=== PATIENT | female | born 1965 | race Caucasian/White ===

== ENCOUNTER 2018-11-11 07:38 | Inpatient (IN) ==
--- NOTE | 2018-11-07 10:16 | EKG Report ---
Test Performed on : 11/07/2018 09:58:55 AM Test Reason : PAT Blood Pressure : / mmHG Vent. Rate : 062 BPM Atrial Rate : 062 BPM P-R Int : 174 ms QRS Dur : 098 ms QT Int : 422 ms P-R-T Axes : 043 047 035 degrees QTc Int : 428 ms Normal sinus rhythm. Normal ECG When compared with ECG of 21-MAY-2015 00:56, No significant change was found Confirmed by Usha BRANDT, Enrique Santiago ([id number]) on 11/08/2018 6:03:40 AM
[2018-11-07 10:29] LABS: URINE SOURCE VOIDED
[2018-11-07 10:33] LABS: BASO# 0.03 X1000 (0.0-0.2); BASO% 0.4 % (0.0-0.8); EOS# 0.24 X1000 (0.0-0.7); EOS% 3.3 % (0.0-10.0); HEMATOCRIT 44.1 % (37.0-47.0); HEMOGLOBIN 14.4 g/dL (12.0-16.0); LYMPH# 2.34 X1000 (1.2-3.4); MCH 30.2 PG (27-31); MCHC 32.7 g/dL (33-37); MCV 92.5 FL (81-99); MONO# 0.65 X1000 (0.11-0.59); MONO% 8.9 % (1.7-9.3); NEUT# 4.05 X1000 (1.4-6.5); NEUT% 55.4 % (42.2-75.2); PLT 166 X1000 (130-400); RBC 4.77 XMIL (4.2-5.4); RDW 14.9 % (11.5-14.5); WBC 7.31 X1000 (4.8-10.8)
[2018-11-07 10:35] LABS: BILIRUBIN URINE NEGATIVE (NEGATIVE); BLOOD URINE NEGATIVE (NEGATIVE); COLOR YELLOW; GLUCOSE URINE NEGATIVE (NEGATIVE); KETONE URINE NEGATIVE (NEGATIVE); LEUKOCYTES URINE NEGATIVE (NEGATIVE); NITRITE URINE NEGATIVE (NEGATIVE); PH URINE 6.5; PROTEIN URINE 30 mg/dL (NEGATIVE); SP GRAVITY URINE 1.019; TURBIDITY URINE CLEAR (CLEAR); UROBILINOGEN URINE 2 mg/dL (NORMAL)
[2018-11-07 10:36] LABS: UR EPITHELIAL CELLS <10 /HPF (<10); URINE BACTERIA NEGATIVE /HPF; URINE RBC <10 /HPF (<10); URINE WBC <10 /HPF (<10)
--- NOTE | 2018-11-07 10:40 | Diag Imaging Result Doc PS360 ---
EXAM: CHEST-2 VIEWS INDICATION: PAT TECHNIQUE: 2 views COMPARISON: 03/18/2015 FINDINGS: The lungs are grossly clear. There is no discrete pleural fluid collection or pneumothorax. The cardiomediastinal silhouette and central vasculature are grossly unremarkable. IMPRESSION: No evidence of acute pathology by plain radiograph. Electronically signed by rTell Riddle 11/07/2018 10:37 AM
[2018-11-07 10:47] LABS: AGAP 7; BUN 20 mg/dL (8-22); CALCIUM 10.1 mg/dL (8.8-10.2); CHLORIDE 105 mmol/L (98-107); COSMO 286; CREATININE 0.7 mg/dL (0.5-0.9); ESTIMATED GFR > 60; GLUCOSE 139 mg/dL (70-104); POTASSIUM 4.1 mmol/L (3.5-5.1); SODIUM 141 mmol/L (136-145); TCO2 29 mmol/L (25-35)
[~2018-11-11 07:38] MED LIST: VERSED ONE
[2018-11-11] MEDS ORDERED: SODIUM CHLORIDE 0.9% 10 ML ONE (07:45)
[2018-11-11] MEDS ORDERED: FENTANYL ONE (07:45)
[2018-11-11] MEDS ORDERED: SENSORCAINE 0.25%/EPI 1:200,000 ONE (07:45)
[2018-11-11] MEDS ORDERED: QUELICIN (DOSE) ONE ×2 (07:45→07:55)
[2018-11-11] MEDS ORDERED: XYLOCAINE-MPF 2% ONE (07:45)
[2018-11-11] MEDS ORDERED: DIPRIVAN 1% ONE (07:45)
[2018-11-11] MEDS ORDERED: NORCURON ONE (07:45)
[2018-11-11] MEDS ORDERED: SODIUM CHLORIDE 0.9% ONE (07:46)
[2018-11-11] MEDS ORDERED: LR 1,000 ML ONE ×2 (07:46→07:48)
[2018-11-11] MEDS ORDERED: GLUCAGON ONE (07:46)
[2018-11-11] MEDS ORDERED: PEPCID ONE (07:48)
[2018-11-11] MEDS ORDERED: VALIUM ONE (07:48)
[2018-11-11] MEDS ORDERED: REGLAN ONE (07:48)
[2018-11-11] MEDS ORDERED: KEFZOL 1 GM/D5W 1 GM/50 ML IVPB ONE (07:48)
[2018-11-11] MEDS ORDERED: TENORMIN ONE (08:01)
[2018-11-11] MEDS ORDERED: EPHEDRINE ONE (08:29)
[2018-11-11] MEDS ORDERED: NEOSTIGMINE ONE (08:53)
[2018-11-11] MEDS ORDERED: ROBINUL ONE (08:53)
[2018-11-11] MEDS: NORCO-10 ONE (09:55)
--- NOTE | 2018-11-11 09:55 | Diag Imaging Result Doc PS360 ---
OPERATIVE CHOLANGIOGRAM - 11/11/2018 INDICATION: GALLBLADDER DX TECHNIQUE: The exam was performed by the patient's surgeon. One image was submitted. COMPARISON: None FINDINGS: Contrast was infused into the cystic duct. This outlines a normal common bile duct. There is good passage of contrast into the duodenum. No strictures or filling defect. IMPRESSION: No complication. Electronically signed by Ugo Parra 11/11/2018 9:53 AM
[2018-11-11] MEDS: 1/2 NS 1,000 ML ONE (10:10)
[2018-11-11] MEDS ORDERED: ZOFRAN IV PRN (10:45)
[2018-11-11] MEDS: 1/2 NS 1,000 ML IV SCH ×2 (11:00→20:51)
[2018-11-11] MEDS ORDERED: NORCO-5 PO PRN (13:44)
[2018-11-11] MEDS: NICODERM PATCH TD SCH (14:26)
[2018-11-11] MEDS: KEFZOL 1 GM/D5W 1 GM/50 ML IVPB IV SCH (16:12)
--- NOTE | 2018-11-11 16:18 | OPERATIVE NOTE ---
PROCEDURE DATE: 11/11/2018 PREOPERATIVE DIAGNOSES: 1. Cholecystitis. 2. Cholelithiasis. 3. Morbid obesity. 4. Diabetes. 5. End-stage chronic obstructive pulmonary disease. 6. Large incarcerated umbilical hernia. PROCEDURES: 1. Laparoscopic cholecystectomy with operative cholangiogram. 2. Reduction omental contents in the umbilical hernia. DESCRIPTION OF PROCEDURE: The patient is brought to the operating room. After satisfactory induction of IV and endotracheal anesthesia, athrombic TEDs were placed. Her abdomen was broadly prepped and draped in the appropriate manner. There was a fairly large umbilical hernia with omental contents demonstrated on CT scan, along with the multiple stones in her gallbladder. An area above the umbilical hernia was infiltrated with Marcaine with epinephrine. A vertical incision was made down over the dome of the hernia sac. The fascia was tacked with 0 Surgilon and incised. Under direct visualization, a Renetta trocar was placed. This was through about 5 to 6 inches of subcutaneous fat. The abdomen was insufflated to 3.5 L of carbon dioxide. Again, after infiltration with Marcaine and epinephrine, two 10 and two 5 mm trocars were placed, 3 across the upper epigastrium on the right side and another 10 in the left lower quadrant for the fan retractor. There were dense omental adhesions to a distended, inflamed gallbladder. These were peeled down after the patient was repositioned. The fan device was deployed which eased in the dissection. The cystic duct and cystic artery were skeletonized. The cystic duct cholangiogram revealed good flow of contrast into the duodenum with no obstruction. The catheter was subsequently removed. The duct was doubly clipped and divided, as was the cystic artery. The gallbladder was subsequently dissected from the liver bed with the use of the monopolar scissors. It was placed in an EndoCatch bag and brought down to the supraumbilical incision. The sac could not be delivered. For this reason, the omental contents from the umbilical hernia were reduced and the little fascial ledge between the EndoCatch bag and the hernia was opened with delivery of the EndoCatch bag with the gallbladder. There were 2 fairly large stones in the gallbladder. Reinspection of the liver bed reveals some small bleeding points that were subsequently controlled by electrocautery. The subhepatic and subphrenic spaces were aspirated free of the small amount of bile and blood. All trocars were removed after abdominal deflation. The supraumbilical incision underwent fascial closures of 0 Surgilon. All skin incisions were closed with stainless steel clips. The plan is to repair the umbilical hernia with mesh at a later date, maybe 3 to 4 months away. The patient was subsequently awakened and extubated in the operating room and transferred to recovery. ESTIMATED BLOOD LOSS: About 20 mL. In view of her multiple morbidities, she will be kept in the hospital at least 24 hours. cc: Chuck Berkowitz MD
[2018-11-11] MEDS ORDERED: GLUCOPHAGE PO SCH (17:00)
[2018-11-11] MEDS: ZANTAC PO SCH (20:57)
[2018-11-11] MEDS: NORCO-10 PO PRN ×2 (20:57→20:59)
[2018-11-11] MEDS: PERIDEX MT SCH (20:57)
[2018-11-12] MEDS: KEFZOL 1 GM/D5W 1 GM/50 ML IVPB IV SCH ×2 (00:36→08:52)
[2018-11-12 06:48] LABS: HEMATOCRIT 41.9 % (37.0-47.0); HEMOGLOBIN 13.5 g/dL (12.0-16.0); MCH 29.9 PG (27-31); MCHC 32.2 g/dL (33-37); MCV 92.9 FL (81-99); MPV 10.3 FL (7.4-10.4); RBC 4.51 XMIL (4.2-5.4); RDW 14.9 % (11.5-14.5); WBC 7.28 X1000 (4.8-10.8)
[2018-11-12 07:13] LABS: AGAP 9; ALB/GLOB RATIO 1.5; ALBUMIN 3.9 g/dL (3.5-5.0); ALKALINE PHOSPHATASE 77 U/L (32-104); BUN 8 mg/dL (8-22); CALCIUM 9.8 mg/dL (8.8-10.2); CHLORIDE 101 mmol/L (98-107); COSMO 276; CREATININE 0.7 mg/dL (0.5-0.9); ESTIMATED GFR > 60; GLUCOSE 161 mg/dL (70-104); GOT 62 U/L (10-30); GPT 61 U/L (10-36); POTASSIUM 4.2 mmol/L (3.5-5.1); SODIUM 137 mmol/L (136-145); TCO2 27 mmol/L (25-35); TOTAL BILIRUBIN 0.35 mg/dL (0.20-1.00); TOTAL PROTEIN 6.5 g/dL (6.3-8.3)
--- NOTE | 2018-11-12 07:22 | Diag Imaging Result Doc PS360 ---
EXAM: CHEST-PORTABLE INDICATION: POST SURGERY TECHNIQUE: One view COMPARISON: 11/07/2018 FINDINGS: The lungs are grossly clear. There is no discrete pleural fluid collection or pneumothorax. The cardiomediastinal silhouette and central vasculature are grossly unremarkable. IMPRESSION: No evidence of acute pathology by plain radiograph. Electronically signed by Trell Riddle 11/12/2018 7:20 AM
[2018-11-12 07:26] VITALS: BP 119/66
[2018-11-12] MEDS: PERIDEX MT SCH (08:52)
[2018-11-12] MEDS: NICODERM PATCH TD SCH (08:52)
[2018-11-12] MEDS: ZANTAC PO SCH (08:52)
[2018-11-12] MEDS ORDERED: TENORMIN PO SCH (09:00)
[2018-11-12] MEDS ORDERED: KLOR-CON PO SCH (09:00)
[2018-11-12] MEDS ORDERED: PAXIL PO SCH (09:00)
[2018-11-12] MEDS ORDERED: GLUCOPHAGE PO SCH (09:00)
[2018-11-12] MEDS: NORCO-10 PO PRN (09:47)
[2018-11-12] MEDS: 1/2 NS 1,000 ML ONE (09:58)
[2018-11-12] MEDS: NORCO-10 ONE (09:58)
[2018-11-12] MEDS: 1/2 NS 1,000 ML IV SCH (09:58)
[2018-11-12] MEDS ORDERED: ZOCOR PO SCH (16:00)
== END 2018-11-12 10:16 | disposition home or self-care (01) | DRG 418 ==
LOC: OR 07:38 → 4N 07:38 → OBSVTOIN 09:53
PROVIDERS: ADMIT Surgery; ATTEND Surgery

== ENCOUNTER 2019-01-27 05:09 | Day surgery (SDC) ==
[2019-01-22 14:07] LABS: URINE SOURCE VOIDED
[2019-01-22 14:12] LABS: BASO# 0.03 X1000 (0.0-0.2); BASO% 0.4 % (0.0-0.8); EOS# 0.25 X1000 (0.0-0.7); EOS% 3.5 % (0.0-10.0); HEMATOCRIT 42.4 % (37.0-47.0); HEMOGLOBIN 13.3 g/dL (12.0-16.0); IMM GRAN# 0.02 X1000 (0.0-0.04); IMM GRAN% 0.3 % (0.0-0.5); LYMPH# 2.14 X1000 (1.2-3.4); LYMPH% 30.2 % (20.5-51.1); MCHC 31.4 g/dL (33-37); MCV 92.6 FL (81-99); MONO# 0.51 X1000 (0.11-0.59); MONO% 7.2 % (1.7-9.3); MPV 10.2 FL (7.4-10.4); NEUT# 4.13 X1000 (1.4-6.5); NEUT% 58.4 % (42.2-75.2); PLT 161 X1000 (130-400); RBC 4.58 XMIL (4.2-5.4); RDW 14.8 % (11.5-14.5); WBC 7.08 X1000 (4.8-10.8)
--- NOTE | 2019-01-22 14:14 | Diag Imaging Result Doc PS360 ---
EXAM: CHEST-2 VIEWS HISTORY: PAT TECHNIQUE: Two views COMPARISON: 11/12/2018 FINDINGS: The lungs are hyperexpanded. The heart is not enlarged. The vessels are not distended. There are no infiltrates. No pleural effusions. IMPRESSION: No acute abnormality. Electronically signed by John Finley 01/22/2019 2:12 PM
[2019-01-22 14:24] LABS: BILIRUBIN URINE NEGATIVE (NEGATIVE); BLOOD URINE NEGATIVE (NEGATIVE); COLOR YELLOW; GLUCOSE URINE NEGATIVE (NEGATIVE); KETONE URINE NEGATIVE (NEGATIVE); LEUKOCYTES URINE NEGATIVE (NEGATIVE); NITRITE URINE NEGATIVE (NEGATIVE); PH URINE 5.5; PROTEIN URINE 30 mg/dL (NEGATIVE); SP GRAVITY URINE 1.024; TURBIDITY URINE CLEAR (CLEAR); UROBILINOGEN URINE NORMAL (NORMAL)
[2019-01-22 14:25] LABS: UR EPITHELIAL CELLS >10 /HPF (<10); URINE BACTERIA 1+ /HPF; URINE RBC <10 /HPF (<10); URINE WBC <10 /HPF (<10)
--- NOTE | 2019-01-22 14:42 | EKG Report ---
Test Performed on : 01/22/2019 1:53:44 PM Test Reason : PAT Blood Pressure : / mmHG Vent. Rate : 063 BPM Atrial Rate : 063 BPM P-R Int : 186 ms QRS Dur : 090 ms QT Int : 402 ms P-R-T Axes : 067 070 038 degrees QTc Int : 411 ms Normal sinus rhythm. Low voltage QRS Borderline ECG When compared with ECG of 07-NOV-2018 09:58, No significant change was found Confirmed by Martínez BRANDT, P.J.M ([id number]) on 01/22/2019 8:01:38 PM
[2019-01-22 14:59] LABS: AGAP 15; ALB/GLOB RATIO 1.9; ALBUMIN 3.9 g/dL (3.5-5.0); ALKALINE PHOSPHATASE 83 U/L (32-104); BUN 13 mg/dL (8-22); CALCIUM 9.6 mg/dL (8.8-10.2); CHLORIDE 106 mmol/L (98-107); COSMO 287; CREATININE 0.6 mg/dL (0.5-0.9); ESTIMATED GFR > 60; GLUCOSE 100 mg/dL (70-104); GOT 14 U/L (10-30); GPT 13 U/L (10-36); POTASSIUM 4.7 mmol/L (3.5-5.1); SODIUM 144 mmol/L (136-145); TCO2 23 mmol/L (25-35); TOTAL BILIRUBIN < 0.15 mg/dL (0.20-1.00)
[2019-01-27] MEDS ORDERED: REGLAN ONE (05:37)
[2019-01-27] MEDS ORDERED: LR 1,000 ML ONE ×2 (05:37→06:27)
[2019-01-27] MEDS ORDERED: KEFZOL 1 GM/D5W 1 GM/50 ML IVPB ONE (05:37)
[2019-01-27] MEDS ORDERED: PEPCID ONE (05:37)
[2019-01-27] MEDS ORDERED: MARCAINE 0.25% PF/EPI 1:200,000 ONE (06:27)
[2019-01-27] MEDS ORDERED: ZEMURON ONE (06:34)
[2019-01-27] MEDS ORDERED: DIPRIVAN 1% ONE (06:34)
[2019-01-27] MEDS ORDERED: QUELICIN (DOSE) ONE (06:34)
[2019-01-27] MEDS ORDERED: XYLOCAINE-MPF 2% ONE (06:34)
[2019-01-27] MEDS ORDERED: FENTANYL ONE (06:40)
[2019-01-27] MEDS ORDERED: VERSED ONE (06:57)
[2019-01-27] MEDS ORDERED: ZOFRAN ONE (07:09)
[2019-01-27] MEDS ORDERED: TORADOL ONE (07:09)
[2019-01-27] MEDS ORDERED: ROBINUL ONE ×5 (07:14→08:10)
[2019-01-27] MEDS ORDERED: EPHEDRINE ONE (07:25)
[2019-01-27] MEDS ORDERED: NEOSTIGMINE ONE (07:59)
[2019-01-27] MEDS ORDERED: 1/2 NS 1,000 ML ONE (08:36)
[2019-01-27] MEDS: DILAUDID ONE ×2 (08:36→08:39)
[2019-01-27 08:39] LABS: URINE SOURCE CATH
[2019-01-27 08:54] LABS: BILIRUBIN URINE NEGATIVE (NEGATIVE); BLOOD URINE NEGATIVE (NEGATIVE); COLOR STRAW; GLUCOSE URINE NEGATIVE (NEGATIVE); KETONE URINE NEGATIVE (NEGATIVE); LEUKOCYTES URINE NEGATIVE (NEGATIVE); NITRITE URINE NEGATIVE (NEGATIVE); PROTEIN URINE NEGATIVE (NEGATIVE); SP GRAVITY URINE 1.005; TURBIDITY URINE CLEAR (CLEAR); UROBILINOGEN URINE NORMAL (NORMAL)
[2019-01-27 08:55] LABS: UR EPITHELIAL CELLS <10 /HPF (<10); URINE BACTERIA NEGATIVE /HPF; URINE RBC <10 /HPF (<10); URINE WBC <10 /HPF (<10)
[2019-01-27] MEDS ORDERED: ZOFRAN IV PRN (09:00)
[2019-01-27] MEDS: 1/2 NS 1,000 ML IV SCH ×3 (10:00→23:24)
--- NOTE | 2019-01-27 11:29 | OPERATIVE NOTE ---
PROCEDURE DATE: 01/27/2019 PREOPERATIVE DIAGNOSIS: Incarcerated umbilical hernia with omental contents. POSTOPERATIVE DIAGNOSIS: Incarcerated umbilical hernia with omental contents. PROCEDURE PERFORMED: Laparoscopic repair with 15 round Parietex mesh. DESCRIPTION OF PROCEDURE IN DETAIL: The patient was brought to the operating room. After satisfactory IV and endotracheal anesthesia, athrombic TEDs and a Garcia catheter were placed. Her abdomen was broadly prepped and draped in the appropriate manner for laparoscopy. Initially, a right epigastric approach was used for placement of a Renetta trocar. The abdomen was insufflated to 3.5 L of carbon dioxide. On introduction of the camera, the large portion of omentum seen in the umbilical hernia area was visualized. On the left side of the abdomen, 12 and a 5 mm trocar were placed. The omental contents were manually reduced One small area required electrocautery, otherwise it fell out without bleeding or tearing. It was marked out. It was felt to be covered nicely by a 15 round Parietex. The North, South, East and West borders were marked out and infiltrated with Marcaine and Xylocaine with epinephrine. Mesh was brought into the field. [place]- Rick sutures were placed at the North, South, East and West borders. It was 15 cm round. It was moistened, rolled up and placed in through the 12 mm trocar. It was subsequently unfurled, and with the Heladio technique was used to tack up and cover the area. The graft was subsequently smoothed out with an AbsorbaTack. On completion, the defect was completely covered. Inspection of the peritoneum revealed no evidence of visceral injury and no bleeding from the omentum that had been incarcerated. The abdomen was subsequently deflated. The right epigastric incision underwent fascial closures of 0 Surgilon. Seven incisions were closed with subcuticular 4-0 Vicryl. Steri-Strips, Telfa, OpSite and abdominal binder were placed. The patient was awakened and extubated in the operating room, and transferred to recovery. Estimated blood loss was around 10 mL. cc: Chuck Berkowitz MD
[2019-01-27] MEDS ORDERED: VENTOLIN HFA INH PRN (12:48)
[2019-01-27] MEDS ORDERED: EXCEDRIN MIGRAINE PO PRN (12:48)
[2019-01-27] MEDS ORDERED: TYLENOL PO PRN (12:48)
[2019-01-27] MEDS ORDERED: NICODERM PATCH TD ONE (13:10)
[2019-01-27] MEDS ORDERED: FLU VACCINE IM ONE (13:55)
[2019-01-27] MEDS: KEFZOL 1 GM/D5W 1 GM/50 ML IVPB IV SCH ×2 (15:17→22:38)
[2019-01-27] MEDS: NORCO-10 PO PRN ×2 (17:38→22:56)
[2019-01-27] MEDS ORDERED: ZOCOR PO SCH (21:00)
[2019-01-27] MEDS ORDERED: TENORMIN PO SCH (21:00)
[2019-01-27] MEDS: PERIDEX MT SCH (22:38)
[2019-01-28] MEDS: KEFZOL 1 GM/D5W 1 GM/50 ML IVPB IV SCH (06:10)
[2019-01-28] MEDS: NORCO-10 PO PRN (07:34)
[2019-01-28 08:41] VITALS: BP 128/62
[2019-01-28] MEDS ORDERED: GLUCOPHAGE PO SCH (09:00)
[2019-01-28] MEDS ORDERED: ALLEGRA PO SCH (09:00)
[2019-01-28] MEDS ORDERED: ZANTAC PO SCH (09:00)
[2019-01-28] MEDS ORDERED: PAXIL PO SCH (09:00)
[2019-01-28] MEDS: PERIDEX MT SCH (09:06)
[2019-01-28] MEDS: NICODERM PATCH TD SCH ×2 (09:06→09:10)
== END 2019-01-28 10:22 | disposition home or self-care (01) ==
LOC: OR 05:09 → 4N 05:09 → OR 01-28 10:22
PROVIDERS: ATTEND Surgery